=== PATIENT | female | born 1990 | race Hispanic/Latino ===

== ENCOUNTER 2018-03-07 13:41 | Observation (INO) | payer OTHER, MEDICAID ==
[2018-03-07] MEDS ORDERED: PANTOPRAZOLE 40 MG/VIAL IVP SCH (15:15)
[2018-03-07] MEDS ORDERED: LACTATED RINGERS 1000ML IV SCH (15:15)
[2018-03-07] MEDS ORDERED: PROMETHAZINE HCL 25 MG/ML 1ML AMPULE IM SCH (15:15)
[2018-03-07 15:19] LABS: HEMATOCRIT 34.1 % (36-48); MEAN CORPUSCULAR HEMOGLOBIN 29.3 pg (27.0-33.0); MEAN CORPUSCULAR HGB CONC 35.3 g/dL (32.0-36.0); PLATELET COUNT (AUTO) 275 K/uL (130-400); RED BLOOD CELL COUNT(AUTO) 4.11 MIL/uL (4.00-5.50); RED CELL DISTRIBUTION WIDTH 13.1 % (11.0-15.5); WHITE BLOOD COUNT (AUTO) 8.5 K/uL (4.8-10.8)
[2018-03-07 15:39] LABS: CREATININE 0.6 mg/dL (0.5-1.5); POTASSIUM 3.7 mmol/L (3.5-5.1)
[2018-03-07 15:48] LABS: ALBUMIN 2.5 g/dL (3.5-5.0); BILIRUBIN,TOTAL 0.3 mg/dL (0.2-1.0); TOTAL PROTEIN, SERUM 6.8 g/dL (6.0-8.3)
== END 2018-03-07 17:14 | disposition home or self-care (01) ==
LOC: LDH 13:41
PROVIDERS: ADMIT Obstetrics & Gynecology; ATTEND Obstetrics & Gynecology
DX: O21.2 Late vomiting of pregnancy (principal); O26.893 Other specified pregnancy related conditions, third trimester; R10.10 Upper abdominal pain, unspecified; O99.353 Diseases of the nervous system complicating pregnancy, third trimester; G40.909 Epilepsy, unspecified, not intractable, without status epilepticus; Z3A.36 36 weeks gestation of pregnancy
CPT/HCPCS: 36415; 80053; 85027; 96372; 96374; C9113; G0378 ×5; J2550; J7120; 96360; 96361

== ENCOUNTER 2018-03-14 09:29 | Observation (INO) | payer OTHER, MEDICAID ==
[~2018-03-14] VITALS: Ht 162.6 cm; Wt 113.9 kg
[2018-03-14 09:59] LABS: APPEARANCE,URINE Clear (CLEAR); BILIRUBIN,URINE Negative (NEGATIVE); COLOR,URINE Yellow (YELLOW); GLUCOSE, URINE (UA) Negative (NEGATIVE); KETONES,URINE Negative (NEGATIVE); LEUKOCYTE ESTERASE ,URINE Large (NEGATIVE); NITRATE,URINE Negative (NEGATIVE); OCCULT BLOOD,URINE Negative (NEGATIVE); PH,URINE 5.5 (5.0-8.0); PROTEIN,URINE Negative (NEGATIVE); UROBILINOGEN,URINE 0.2 mg/dL (0.2-1.0)
[2018-03-14 10:15] LABS: BACTERIA,URINE Few /HPF (None Seen); MUCUS,URINE Rare LPF (None Seen); SQUAMOUS EPITHELIAL CELL,UR Moderate /HPF (0-2)
== END 2018-03-14 12:18 | disposition home or self-care (01) ==
LOC: LDH 09:29
PROVIDERS: ADMIT Obstetrics & Gynecology; ATTEND Obstetrics & Gynecology
DX: O21.2 Late vomiting of pregnancy (principal); O26.893 Other specified pregnancy related conditions, third trimester; R19.7 Diarrhea, unspecified; Z3A.34 34 weeks gestation of pregnancy
CPT/HCPCS: 81001; G0378 ×4; 96360; 96361

== ENCOUNTER 2018-04-09 19:42 | Inpatient (IN) | payer OTHER, MEDICAID | END 2018-04-12 14:50 | disposition home or self-care (01) | LOC: LDH 04-10 00:50 → WSH 04-10 08:15 | PROC: 10E0XZZ Delivery of Products of Conception, External Approach (ICD-10-PCS; principal; ~2018-04-09) | DX: O80 Encounter for full-term uncomplicated delivery (principal); Z37.0 Single live birth; Z3A.00 Weeks of gestation of pregnancy not specified ==

== ENCOUNTER 2020-05-20 10:09 | Observation (INO) | payer MEDICAID ==
[~2020-05-20] VITALS: Ht 162.6 cm; Wt 122.0 kg
[~2020-05-20 10:09] MED LIST: PREN-196 PO
== END 2020-05-20 11:35 | disposition home or self-care (01) ==
LOC: LDH 10:09
PROVIDERS: ADMIT Specialist; ATTEND Specialist
DX: Z34.93 Encounter for supervision of normal pregnancy, unspecified, third trimester (principal); Z87.891 Personal history of nicotine dependence; Z3A.37 37 weeks gestation of pregnancy
CPT/HCPCS: 76819; G0378; 59025

== ENCOUNTER 2020-06-03 04:00 | Inpatient (IN) | payer MEDICAID ==
[~2020-06-03] VITALS: Ht 162.6 cm; Wt 124.3 kg
[2020-06-03] MEDS ORDERED: LACTATED RINGERS 1000ML 1,000 ML IV SCH (04:15)
[2020-06-03] MEDS ORDERED: PREN-196 PO (04:17)
[2020-06-03 04:34] LABS: APPEARANCE,URINE Clear (CLEAR); BILIRUBIN,URINE Negative (NEGATIVE); COLOR,URINE Yellow (YELLOW); GLUCOSE, URINE (UA) Negative (NEGATIVE); KETONES,URINE Negative (NEGATIVE); LEUKOCYTE ESTERASE ,URINE Moderate (NEGATIVE); NITRATE,URINE Negative (NEGATIVE); OCCULT BLOOD,URINE Negative (NEGATIVE); PH,URINE 6.5 (5.0-8.0); PROTEIN,URINE Negative (NEGATIVE); UROBILINOGEN,URINE 0.2 mg/dL (0.2-1.0)
[2020-06-03] MEDS ORDERED: PROMETHAZINE HCL 25 MG/ML 1ML AMPULE IM SCH (04:45)
[2020-06-03] MEDS ORDERED: LACTATED RINGERS 1000ML 1,000 ML IV PRN (04:45)
[2020-06-03] MEDS ORDERED: MEPERIDINE-PF 25 MG/ML SYG IVP ONE (04:45)
[2020-06-03] MEDS ORDERED: OXYTOCIN-LR 20 UNITS/1000 ML 1,000 ML IV SCH ×2 (04:45→08:00)
[2020-06-03 04:53] LABS: BACTERIA,URINE Few /HPF (None Seen); RBC,URINE 0-1 /HPF (0-1)
[2020-06-03 04:58] LABS: HEMATOCRIT 35.8 % (36-48); MEAN CORPUSCULAR HEMOGLOBIN 25.8 pg (27.0-33.0); MEAN CORPUSCULAR HGB CONC 32.4 g/dL (32.0-36.0); MEAN CORPUSCULAR VOLUME 79.7 fL (79-99); RED BLOOD CELL COUNT(AUTO) 4.49 MIL/uL (4.00-5.50); RED CELL DISTRIBUTION WIDTH 14.1 % (11.0-15.5); WHITE BLOOD COUNT (AUTO) 10.2 K/uL (4.8-10.8)
[2020-06-03] MEDS ORDERED: MEPERIDINE-PF 25 MG/ML SYG ONE ×2 (05:06→06:32)
[2020-06-03] MEDS ORDERED: MEPERIDINE-PF 25 MG/ML SYG IVP SCH (06:45)
[2020-06-03] MEDS ORDERED: LANOLIN 30GM OINTMENT TP PRN (08:00)
[2020-06-03] MEDS ORDERED: WITCH HAZEL 1 PAD TP PRN (08:00)
[2020-06-03] MEDS ORDERED: ACETAMINOPHEN 325 MG TAB PO PRN (08:00)
[2020-06-03] MEDS ORDERED: DIPH,PERTUSS(ACELL),TET VAC/PF 0.5 ML VIAL IM PRN (08:00)
[2020-06-03] MEDS ORDERED: BENZOCAINE/LANOLIN/ALOE VERA 60 ML AEROSOL TP PRN (08:00)
[2020-06-03] MEDS ORDERED: MEASLES/MUMPS/RUBELLA VACCINE, LIVE 0.5 ML/VIAL SQ PRN (08:00)
[2020-06-03] MEDS ORDERED: IBUPROFEN 600 MG TABLET ONE (08:04)
[2020-06-03 09:22] VITALS: BP 146/88
[2020-06-03] MEDS: DOCUSATE SODIUM 100 MG CAP PO SCH ×2 (10:13→22:04)
[2020-06-03] MEDS: ACETAMINOPHEN WITH CODEINE 1 TAB TAB PO PRN ×2 (10:16→19:03)
[2020-06-03 11:08] VITALS: BP 132/77
[2020-06-03] MEDS: IBUPROFEN 600 MG TABLET PO PRN ×2 (14:03→22:04)
[2020-06-03 16:33] VITALS: BP 141/66
[2020-06-03 19:34] VITALS: BP 129/73
[2020-06-04] VITALS: BP 124/80
[2020-06-04 03:50] VITALS: BP 135/73
[2020-06-04] MEDS: IBUPROFEN 600 MG TABLET PO PRN ×2 (04:30→05:16)
[2020-06-04 07:11] VITALS: BP 123/61
[2020-06-04 08:15] LABS: HEPATITIS Bs ANTIGEN SCREEN P Negative (Negative)
[2020-06-04] MEDS: DOCUSATE SODIUM 100 MG CAP PO SCH (09:13)
== END 2020-06-04 10:50 | disposition home or self-care (01) | DRG 560 ==
LOC: EDH 04:00 → LDH 04:01 → OBSVTOIN 04:01 → WSH 09:17
PROVIDERS: ADMIT Specialist; ATTEND Specialist
PROC: 10E0XZZ Delivery of Products of Conception, External Approach (ICD-10-PCS; principal; 2020-06-03)
PROC: 3E0134Z Introduction of Serum, Toxoid and Vaccine into Subcutaneous Tissue, Percutaneous Approach (ICD-10-PCS; 2020-06-03)
PROC: 3E0234Z Introduction of Serum, Toxoid and Vaccine into Muscle, Percutaneous Approach (ICD-10-PCS; 2020-06-03)
DX: O80 Encounter for full-term uncomplicated delivery (principal); Z3A.39 39 weeks gestation of pregnancy; Z37.0 Single live birth; Z23 Encounter for immunization
CPT/HCPCS: 36415; 81001; 85027; 86592; 86850; 86900; 86901; 87088; 87340; 90715; A4351; G0378; J2175; J2590; J7120